=== PATIENT | female | born 1975 | race Caucasian/White ===

== ENCOUNTER → 2016-10-01 | Outpatient (CLI) | payer OTHER ==
[~2016-10-01] MED LIST: HUMALOG KW100 UNIT/1 SQ; INVOKANA100 MG PO; LANTUS INS100 UNITS/ SC; VICTOZA6 MG/ML SC
[2016-10-01 11:19] LABS: HEMOGLOBIN 14.8 g/dL (12.2-16.2); LYMPH # 1.4 K/mm3 (0.7-4.5); LYMPH % 24.4 % (10-50.0)
[2016-10-01 11:31] LABS: URINE BLOOD 3+ (NEG)
[2016-10-01 12:11] LABS: BUN 13 mg/dL (7-18)
[2016-10-01 12:19] LABS: GFR (ESTIMATED) 70 ML/MIN (59-)
[2016-10-01 12:55] LABS: URINE BILIRUBIN - DIPSTICK NEGATIVE (NEG); URINE SQUAMOUS CELLS OCC #/hpf (0-5)
== END ==
LOC: LAB 10:24
PROVIDERS: Obstetrics & Gynecology
DX: Z30.2 Encounter for sterilization (principal); Z01.818 Encounter for other preprocedural examination

== ENCOUNTER 2017-01-06 19:27 | Emergency (ER) | payer OTHER ==
[~2017-01-06] VITALS: Ht 172.7 cm; Wt 72.6 kg
[2017-01-06] MEDS ORDERED: HYDROCHLOROTH12.5 M1 PO (19:38)
[2017-01-06] MEDS ORDERED: BACTRIM DS 8001 TA1 PO (20:07)
[2017-01-06] MEDS ORDERED: BACTROBAN2% TP (20:07)
[2017-01-06 20:08] VITALS: BP 140/92
--- NOTE | 2017-01-06 20:08 | Urgent Treatment Center Report ---
History of Present Issue Date/Time Seen by Provider 01/06/171957 Visit Reason Pt arrived:Walked Presenting Problem:LT ARM SWOLLEN AFTER REMOVING INSULIN PUMP TODAY. SHE DID NOTICE PUS WHEN SHE REMOVED THE PUMP TODAY. Location if Accident: Onset of symptoms date/time:/ or onset unknown for:MEDICAL HX UNKNOWN Have you (or family members/close friends) recently traveled outside the [place]? Y If Yes, where/when: [facility] Have you had exposure to infectious disease within the past month? TB? Other? Specify: Patient state that she removed her insulin pump today on her left upper arm States that she noticed that it was red prior to removing and when she removed it states that she noticed some pus came out and red ring on her arm States that she leaves on a flight tomorrow and she came in to get checked ALLERGIES Uncoded Allergies: FLUORIDE (Mild, I-RASH 01/16/16) SILK TAPE (Mild, I-RASH 01/15/16) Home Medications Reported Medications Insulin Lispro (Humalog Kwikpen) 70 UNIT SQ HOURLY #15 ML Insulin Glargine (Lantus Insulin Vial) 22 UNITS SC PRN PRN DIABETES Hydrochlorothiazide (Hydrochlorothiazide 12.5MG) 12.5 MG PO DAILY History Medical History General CAD? No Angina: No CO: No Hypertension? Yes Hyperlipidemia? No CHF? No DVT? No PE? No COPD? No Asthma? No Anemia? No GERD? No Gastric ulcers? No GI Bleed? No Hernia? No Thyroid Problems? No Hypothyroidism? No CVA? No Seizures? No Diabetes? Yes Insulin Dependent: Yes Insulin Pump: Yes Home FSBS? Yes Renal Insuffiency? No UTI? No Stones? No BPH? No GB Disease: No Nephritic Syndrome? No Asplenia? No Hepatitis? No Sickle Cell Disease? No Arthritis? No Migraines? No Cataracts? No Glaucoma? No MRSA? No HIV? No TB? No Anxiety? No Depression? No Cancer? No More? Yes Additional hx: CHOLECYSTECTOMY Immunization HX DT/Tetanus 5-10 Years Ago Flu 2015- Flu Season Pneumonia Received In Past Surgical Hx Previous Surgery?Y GALLBLADDER TUBAL Family History Family HX Diabetes Yes CAD Yes Hypertension No Hyperlipidemia No Cancer Yes TB No Social History Smoking Hx Smoker: Former Smoker Tobacco: No Packs/day < 1 Pack Alcohol Alcohol: No Review of Systems All Other Systems Reviewed and Negative Physical Exam Vital Signs Vital Signs Date Time Temp Pulse Resp B/P Pulse O2 O2 Flow FiO2 Ox Delivery Rate 01/06 1933 98.2 96 20 140/92 100 General Appearance normal appearance, WD/WN, no apparent distress Respiratory Status Yes: trachea midline, chest symmetrical, non tender chest. No: respiratory distress. 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 No Departure Departure Time of Disposition 2003 Disposition [place] Home or Self Care(routine) Clinical Impression Primary Impression: Skin infection Condition STABLE Referrals Solo WALDRON,Efrem Najera (Family): 3 Days-Call Office if no improvement or worsening of symptoms Patient Instructions DI for Skin Abscess Additional Instructions Watch area for streaks, swelling, warmth, or worsening of area, monitor area that was circled for worsening and extending of redness Take medication as prescribed FOllow up with family doctor if needed REturn if needed Discharge Counseling Counseled pt/family regarding diagnosis, medications/RX, home care, follow up needs Prescriptions Current Visit Scripts SULFAMETHOXAZOLE W/TRIMETHOPRI (Bactrim Ds Tab) 1 TABLET PO BID #20 TAB MUPIROCIN 2% (Bactroban Oint) 1 KAT TP BID #1 TUBE at 2009
--- NOTE | 2017-01-06 20:08 | Urgent Treatment Center Report ---
History of Present Issue Date/Time Seen by Provider 01/06/171957 Visit Reason Pt arrived:Walked Presenting Problem:LT ARM SWOLLEN AFTER REMOVING INSULIN PUMP TODAY. SHE DID NOTICE PUS WHEN SHE REMOVED THE PUMP TODAY. Location if Accident: Onset of symptoms date/time:/ or onset unknown for:MEDICAL HX UNKNOWN Have you (or family members/close friends) recently traveled outside the [place]? Y If Yes, where/when: [facility] Have you had exposure to infectious disease within the past month? TB? Other? Specify: Patient state that she removed her insulin pump today on her left upper arm States that she noticed that it was red prior to removing and when she removed it states that she noticed some pus came out and red ring on her arm States that she leaves on a flight tomorrow and she came in to get checked ALLERGIES Uncoded Allergies: FLUORIDE (Mild, I-RASH 01/16/16) SILK TAPE (Mild, I-RASH 01/15/16) Home Medications Reported Medications Insulin Lispro (Humalog Kwikpen) 70 UNIT SQ HOURLY #15 ML Insulin Glargine (Lantus Insulin Vial) 22 UNITS SC PRN PRN DIABETES Hydrochlorothiazide (Hydrochlorothiazide 12.5MG) 12.5 MG PO DAILY History Medical History General CAD? No Angina: No AL: No Hypertension? Yes Hyperlipidemia? No CHF? No DVT? No PE? No COPD? No Asthma? No Anemia? No GERD? No Gastric ulcers? No GI Bleed? No Hernia? No Thyroid Problems? No Hypothyroidism? No CVA? No Seizures? No Diabetes? Yes Insulin Dependent: Yes Insulin Pump: Yes Home FSBS? Yes Renal Insuffiency? No UTI? No Stones? No BPH? No GB Disease: No Nephritic Syndrome? No Asplenia? No Hepatitis? No Sickle Cell Disease? No Arthritis? No Migraines? No Cataracts? No Glaucoma? No MRSA? No HIV? No TB? No Anxiety? No Depression? No Cancer? No More? Yes Additional hx: CHOLECYSTECTOMY Immunization HX DT/Tetanus 5-10 Years Ago Flu 2015- Flu Season Pneumonia Received In Past Surgical Hx Previous Surgery?Y GALLBLADDER TUBAL Family History Family HX Diabetes Yes CAD Yes Hypertension No Hyperlipidemia No Cancer Yes TB No Social History Smoking Hx Smoker: Former Smoker Tobacco: No Packs/day < 1 Pack Alcohol Alcohol: No Review of Systems All Other Systems Reviewed and Negative Physical Exam Vital Signs Vital Signs Date Time Temp Pulse Resp B/P Pulse O2 O2 Flow FiO2 Ox Delivery Rate 01/06 1933 98.2 96 20 140/92 100 General Appearance normal appearance, WD/WN, no apparent distress Respiratory Status Yes: trachea midline, chest symmetrical, non tender chest. No: respiratory distress. 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 No Departure Departure Time of Disposition 2003 Disposition [place] Home or Self Care(routine) Clinical Impression Primary Impression: Skin infection Condition STABLE Referrals Solo WALDRON,Efrem Najera (Family): 3 Days-Call Office if no improvement or worsening of symptoms Patient Instructions DI for Skin Abscess Additional Instructions Watch area for streaks, swelling, warmth, or worsening of area, monitor area that was circled for worsening and extending of redness Take medication as prescribed FOllow up with family doctor if needed REturn if needed Discharge Counseling Counseled pt/family regarding diagnosis, medications/RX, home care, follow up needs Prescriptions Current Visit Scripts SULFAMETHOXAZOLE W/TRIMETHOPRI (Bactrim Ds Tab) 1 TABLET PO BID #20 TAB MUPIROCIN 2% (Bactroban Oint) 1 KAT TP BID #1 TUBE at 2009
== END 2017-01-06 20:08 | disposition home or self-care (01) ==
LOC: UTC 19:27
DX: T85.72XA Infection and inflammatory reaction due to insulin pump, initial encounter (principal); I10 Essential (primary) hypertension; Z87.891 Personal history of nicotine dependence; E11.9 Type 2 diabetes mellitus without complications; Z79.4 Long term (current) use of insulin